=== PATIENT | male | born 2000 | race Caucasian/White ===

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

== ENCOUNTER → 2019-08-24 | Outpatient (CLI) | payer BC | LOC: COL.RAD 08:10 | DX: M25.552 Pain in left hip (principal) | CPT/HCPCS: A9585; J3301; Q9967 ==

== ENCOUNTER → 2020-10-21 | Outpatient (CLI) | payer BC | LOC: COL.RAD 07:53 | DX: R10.9 Unspecified abdominal pain (principal) | CPT/HCPCS: Q9967 ==

== ENCOUNTER → 2020-12-04 | Outpatient (CLI) | payer BC | LOC: COL.RAD 07:59 | DX: M51.36 Other intervertebral disc degeneration, lumbar region (principal) ==